=== PATIENT | female | born 1965 | race Caucasian/White ===

== ENCOUNTER 2023-04-10 06:20 | Emergency (ER) | payer OTHER ==
[~2023-04-10] VITALS: Ht 149.9 cm; Wt 98.0 kg
[2023-04-10] MEDS ORDERED: CEPH500C2 MT (09:07)
[2023-04-10 09:28] VITALS: BP 143/77; PULSE 79; RESP 18; TEMP 97.6
== END 2023-04-10 09:24 | disposition home or self-care (01) ==
LOC: ER 06:20
DX: L03.031 Cellulitis of right toe (principal); E11.9 Type 2 diabetes mellitus without complications; I10 Essential (primary) hypertension
CPT/HCPCS: 73630; 99283